=== PATIENT | male | born 1995 | race African-American/Black ===

== ENCOUNTER 2018-10-22 08:12 | Emergency (ER) | payer MEDICAID ==
[~2018-10-22] VITALS: Ht 177.8 cm; Wt 76.7 kg
[2018-10-22 08:17] VITALS: Ht 177.8 cm; Wt 76.7 kg
[2018-10-22 09:05] LABS: BASOPHIL % 0.1 % (0-2); PLATELET COUNT 169 x10^3mcL (130-400); RED CELL DISTRIBUTION WIDTH 13.5 % (11.5-14.5)
[2018-10-22 09:10] LABS: CALCIUM 9.5 mg/dL (8.5-10.1); CARBON DIOXIDE 25.4 mmol/L (21-32); CHLORIDE SERUM 105 mmol/L (98-107); CREATININE SERUM 1.1 mg/dL (0.7-1.3); GFR1 > 60 mL/min; GLUCOSE SERUM 107 mg/dL (74-106); POTASSIUM SERUM 4.6 mmol/L (3.5-5.1); SODIUM SERUM 141 mmol/L (136-145)
[2018-10-22 09:14] LABS: ALBUMIN 4.4 g/dL (3.4-5.0); ALKALINE PHOSPHATASE 66 U/L (46-116); ALT/SGPT 27 U/L (16-63); AST/SGOT 21 U/L (15-37); LIPASE 80 IU/L (73-393)
[2018-10-22 09:16] LABS: TOTAL PROTEIN, SERUM 9.5 g/dL (6.4-8.2)
[2018-10-22 09:48] VITALS: BP 122/61
== END 2018-10-22 10:21 | disposition home or self-care (01) ==
LOC: ED 08:12
PROVIDERS: Emergency Medicine
DX: A08.4 Viral intestinal infection, unspecified (principal)
CPT/HCPCS: J2270; J2405; J7030

== ENCOUNTER 2018-12-18 08:46 | Emergency (ER) | payer MEDICAID ==
[~2018-12-18] VITALS: Ht 177.8 cm; Wt 84.1 kg
[2018-12-18 11:04] VITALS: BP 138/64
== END 2018-12-18 11:39 | disposition home or self-care (01) ==
LOC: ED 08:46
DX: J98.01 Acute bronchospasm (principal); F17.210 Nicotine dependence, cigarettes, uncomplicated
CPT/HCPCS: 99406; J2930; J7613; J7644

== ENCOUNTER 2019-04-16 10:55 | Emergency (ER) | payer MEDICAID ==
[~2019-04-16] VITALS: Ht 177.8 cm; Wt 84.1 kg
[2019-04-16 11:09] VITALS: Ht 177.8 cm; Wt 84.1 kg
[2019-04-16 14:52] VITALS: BP 128/66
== END 2019-04-16 14:52 | disposition home or self-care (01) ==
LOC: ED 10:55
DX: R05 Cough (principal); R07.89 Other chest pain; R09.81 Nasal congestion

== ENCOUNTER 2019-05-24 08:47 | Emergency (ER) | payer MEDICAID ==
[~2019-05-24] VITALS: Ht 177.8 cm; Wt 82.1 kg
[2019-05-24 08:52] VITALS: Ht 177.8 cm; Wt 82.1 kg
[2019-05-24 11:16] VITALS: BP 122/62
== END 2019-05-24 11:16 | disposition home or self-care (01) ==
LOC: ED 08:47
DX: J04.0 Acute laryngitis (principal)